=== PATIENT | male | born 1945 | race Caucasian/White ===

== ENCOUNTER 2022-06-21 11:18 | Inpatient (IN) | payer OTHER, MEDICAID ==
[~2022-06-21] VITALS: Ht 177.8 cm; Wt 82.1 kg
[2022-06-21 11:24] VITALS: BP 179/77
[2022-06-21] MEDS ORDERED: ALBUTEROL 0.083% 2.5 MG/3 ML NEBU INH ONE (12:50)
[2022-06-21] MEDS ORDERED: NACL 0.9% 1,000 ML IV ONE (12:50)
[2022-06-21] MEDS ORDERED: IPRATROPIUM 0.02% 0.5 MG/2.5 ML NEBU INH ONE (12:50)
[2022-06-21 14:00] LABS: BASOPHILS % (AUTO) 0.1 % (0.0-2.0); EOSINOPHILS % (AUTO) 0.1 % (0.0-4.0); HEMATOCRIT 35.3 % (36-52); HEMOGLOBIN 11.8 g/dL (12.0-18.0); LYMPHOCYTES # (AUTO) 1.6 K/uL (2.0-11.5); LYMPHOCYTES % (AUTO) 11.7 % (20.5-51.1); MEAN CORPUSCULAR HEMOGLOBIN 30 pg (27-31); MEAN CORPUSCULAR HGB CONC 33 g/dL (33-37); MEAN CORPUSCULAR VOLUME 88.5 fL (80-94); MONOCYTES # (AUTO) 0.7 K/uL (0.8-1.0); MONOCYTES % (AUTO) 4.8 % (1.7-9.3); NEUTROPHILS # (AUTO) 11.4 K/uL (1.8-7.7); NEUTROPHILS % (AUTO) 83.3 % (42.2-75.2); PLATELET COUNT (AUTO) 266 K/uL (140-450); RED BLOOD CELL COUNT(AUTO) 3.99 MIL/uL (4.20-6.10); RED CELL DISTRIBUTION WIDTH 15.8 % (11.6-13.7); WHITE BLOOD COUNT (AUTO) 13.7 K/uL (4.8-10.8)
[2022-06-21] MEDS ORDERED: cefTRIAXone 1,000 MG VIAL ONE (14:11)
[2022-06-21 14:35] LABS: ALBUMIN 2.5 g/dL (3.4-5.0); ASPARTATE AMINOTRANSFERASE 12 U/L (15-37); CARBON DIOXIDE 31.6 mmol/L (21-32); CHLORIDE 90 mmol/L (98-107); CREATININE 1.6 mg/dL (0.6-1.3); GLUCOSE 370 mg/dL (74-106); POTASSIUM 3.6 mmol/L (3.5-5.1); SODIUM SERUM 131 mmol/L (136-145); TOTAL BILIRUBIN 0.5 mg/dL (0.0-1.0); UREA NITROGEN, BLOOD 37 mg/dL (7-18)
[2022-06-21 14:41] LABS: RSV Negative (NEGATIVE)
--- NOTE | 2022-06-21 15:09 | NUR ---
PT C/O SOB, SPO2 87% ON 5L N/C. DR SORIANO AWARE. RT CALLED TO BEDSIDE. PT PLACED ON 9L N/C BUBBLER. PT REPORTS FEELING BETTER
--- NOTE | 2022-06-21 15:11 | NUR ---
PT PLACED ON 9L NC BUBBLER SATING 92%. RN REPORTED PT DESATING TO 87 ON NC 5L. PT IS TOLERATING 9L NC BUBBLER. NO DISTRESS NOTED. DR MANRIQUEZ WILL KEEPING SATS >90%
[2022-06-21] MEDS ORDERED: MAG SULF 2000 MG/WATER PREMIX 50 ML IV PRN (15:35)
[2022-06-21] MEDS ORDERED: MORPHINE SULFATE 2 MG/ML SYR IVP PRN (15:35)
[2022-06-21] MEDS ORDERED: ACETAMINOPHEN 325 MG TAB PO PRN (15:35)
[2022-06-21] MEDS ORDERED: DOCUSATE SODIUM 100 MG GELCAP PO PRN (15:35)
[2022-06-21] MEDS ORDERED: ONDANSETRON 4 MG/2 ML VIAL IVP PRN (15:35)
[2022-06-21] MEDS ORDERED: POTASSIUM CHLORIDE 10 MEQ TABER PO PRN (15:35)
[2022-06-21] MEDS ORDERED: DEXTROSE 50% 50 ML SYR IVP PRN (15:40)
[2022-06-21] MEDS ORDERED: DIABETES MEDS (15:49)
[2022-06-21] MEDS ORDERED: HTN MEDS (15:49)
[2022-06-21] MEDS: BLOOD GLUCOSE MONITORING 1 DEV DEV FS SCH ×2 (17:11→21:34)
[2022-06-21] MEDS: INSULIN LISPRO SLIDING SCALE 100 UNITS/ML VIAL SUBQ PRN ×2 (17:22→21:33)
--- NOTE | 2022-06-21 18:16 | NUR ---
PT SAYS FRIEND WHO LIVES WITH HIM WILL BRING HIS HOME MEDS, CAN'T REMEMBER MEDICATION NAMES
--- NOTE | 2022-06-21 18:16 | NUR ---
ATE 50 % OF MEAL TRAY SERVED, WITH ALL FLUIDS
--- NOTE | 2022-06-21 18:17 | NUR ---
NO URGE TO URINATE AT THIS TIME. PT DROVE TO ED WITH FRIEND, VOIDED URINE COMPUTATIONAL BIOLOGIST
[2022-06-21] MEDS ORDERED: METO25TA PO (18:22)
--- NOTE | 2022-06-21 19:45 | NUR ---
Patient resting in bed, A/Ox4, chest rise and fall symmetrical, no c/o pain or s/s of distress. Addendum: 06/21/22 at 2319 by [id number] Patient resting in bed, A/Ox3, chest rise and fall symmetrical, no c/o pain or s/s of distress.
[2022-06-21] MEDS ORDERED: PIPERACILLIN/TAZOBACTAM 3.375 GM in DEXTROSE 5% 50 ML IV SCH (21:00)
--- NOTE | 2022-06-21 21:00 | NUR ---
Patient resting in bed, A/Ox4, chest rise and fall symmetrical, no c/o pain or s/s of distress. Addendum: 06/21/22 at 2319 by [email or web address] Patient resting in bed, A/Ox3, chest rise and fall symmetrical, no c/o pain or s/s of distress.
[2022-06-21] MEDS ORDERED: PIPERACILLIN/TAZOBACTAM 3.375 GM VIAL IV ONE (21:21)
[2022-06-21] MEDS: PIPERACILLIN/TAZOBACTAM 3.375 GM in DEXTROSE 5% 50 ML IV SCH (21:35)
--- NOTE | 2022-06-21 22:00 | NUR ---
Patient resting in bed, A/Ox3, chest rise and fall symmetrical, no c/o pain or s/s of distress.
[2022-06-21 22:09] LABS: PROTHROMBIN TIME 10.9 secs (10.8-13.4)
--- NOTE | 2022-06-21 23:01 | NUR ---
Patient resting in bed, A/Ox3, chest rise and fall symmetrical, no c/o pain or s/s of distress.
--- NOTE | 2022-06-21 23:19 | NUR ---
Patient will be admitted to care of Pooja GRAJEDA. Admited to telemetry. Will go to room 115. Belongings list completed. Report to Pooja GRAJEDA. Pooja GRAJEDA verbalized understanding of report, no further questions.
--- NOTE | 2022-06-21 23:30 | NUR ---
PT WAS ADMITTED TO [facility] DEPARTMENT FROM ER THRU [facility] WITH DX OF COVID. PT IS AOX3, BEDREST, ABLE TO VERBALIZE NEEDS AND ABLE TO FOLLOW COMMANDS. PT IS ON 6L NC AND ON CARDIAC DIET. PT HAS IV ON RIGHT AC GAUGE 20 SALINE LOCK. PT SKIN IS INTACT. NO COMPLAIN OF PAIN AT THIS TIME. NO S/S OF RESPIRATORY DISTRESS NOTED. ALL SAFETY MEASURES IMPLEMENTED. BED IN LOW POSITION, BED WHEELS ON LOCK AND CALL LIGHT WITHIN REACH.
--- NOTE | 2022-06-22 02:00 | NUR ---
PT IS ON SLEEP. CHEST RISE AND FALL SYMMETRICALLY NOTED. RESPIRATION IS EVEN AND UNLABORED. ALL SAFETY MEASURES IMPLEMENTED. BED IN LOW POSITION, BED WHEELS ON LOCK AND CALL LIGHT WITHIN REACH.
[2022-06-22 04:00] VITALS: BP 138/65
[2022-06-22] MEDS ORDERED: PIPERACILLIN/TAZOBACTAM 3.375 GM VIAL IV ONE (04:02)
[2022-06-22] MEDS: PIPERACILLIN/TAZOBACTAM 3.375 GM in DEXTROSE 5% 50 ML IV SCH ×3 (04:33→21:00)
--- NOTE | 2022-06-22 04:33 | NUR ---
SCHEDULED AND PRESCRIBED MEDICATION WAS GIVEN TO PT PER MD ORDER. NO COMPLAIN OF PAIN AT THIS TIME AND NO S/S OF RESPIRATORY DISTRESS NOTED. ALL SAFETY MEASURES IMPLEMENTED. BED IN LOW POSITION, BED WHEELS ON LOCKED AND CALL LIGHT WITHIN REACH.
[2022-06-22] MEDS: BLOOD GLUCOSE MONITORING 1 DEV DEV FS SCH ×4 (06:39→21:22)
[2022-06-22] MEDS: INSULIN LISPRO SLIDING SCALE 100 UNITS/ML VIAL SUBQ PRN ×3 (06:40→21:23)
--- NOTE | 2022-06-22 06:40 | NUR ---
PT BLOOD GLUCOSE IS 171. HUMALOG INSULIN 2 UNITS WAS GIVEN TO PT PER MD ORDER.
[2022-06-22 07:23] LABS: BASOPHILS % (AUTO) 0.2 % (0.0-2.0); EOSINOPHILS # (AUTO) 0.1 K/uL (0-0.4); EOSINOPHILS % (AUTO) 0.9 % (0.0-4.0); HEMATOCRIT 29.7 % (36-52); LYMPHOCYTES % (AUTO) 11.3 % (20.5-51.1); MEAN CORPUSCULAR HEMOGLOBIN 30 pg (27-31); MEAN CORPUSCULAR HGB CONC 34 g/dL (33-37); MEAN CORPUSCULAR VOLUME 88.2 fL (80-94); MONOCYTES # (AUTO) 0.4 K/uL (0.8-1.0); MONOCYTES % (AUTO) 4.7 % (1.7-9.3); NEUTROPHILS # (AUTO) 7.1 K/uL (1.8-7.7); NEUTROPHILS % (AUTO) 82.9 % (42.2-75.2); PLATELET COUNT (AUTO) 236 K/uL (140-450); RED BLOOD CELL COUNT(AUTO) 3.37 MIL/uL (4.20-6.10); RED CELL DISTRIBUTION WIDTH 15.7 % (11.6-13.7); WHITE BLOOD COUNT (AUTO) 8.5 K/uL (4.8-10.8)
[2022-06-22 07:44] LABS: ANION GAP 8.2 (8-16); CHLORIDE 94 mmol/L (98-107); CREATININE 1.6 mg/dL (0.6-1.3); GLUCOSE 193 mg/dL (74-106); POTASSIUM 3.2 mmol/L (3.5-5.1); SODIUM SERUM 133 mmol/L (136-145); UREA NITROGEN, BLOOD 34 mg/dL (7-18)
[2022-06-22 08:00] VITALS: BP 156/77
[2022-06-22] MEDS: ASPIRIN 81 MG TAB.CHEW PO SCH (09:00)
[2022-06-22] MEDS: DEXAMETHASONE 10 MG/ML VIAL IVP SCH (09:00)
[2022-06-22] MEDS: METOPROLOL SUCCINATE 50 MG TABER PO SCH (09:00)
--- NOTE | 2022-06-22 09:23 | NUR ---
PATIENT HAS BEEN SCREENED AND CATEGORIZED MODERATE NUTRITION RISK. PATIENT WILL BE SEEN WITHIN 3-5 DAYS OF ADMISSION. REVIEWED BY VENITA WHIPPLE RD
--- NOTE | 2022-06-22 12:07 | NUR ---
RECEIVED ON SUPPLEMENTAL OXYGEN AT 5 LPM VIA NC HHN PRN THERAPY GIVEN AT THIS TME ENCOURAGED PATIENT FOR INTERMITTENT DEEP BREATH AND COUGH STRONG LOOSE NPC POST HHN THERAPY TITRATED FIO2 TO 3 LPM
[2022-06-22] MEDS: ALBUTEROL 0.083% 2.5 MG/3 ML NEBU INH PRN ×2 (13:38→19:22)
[2022-06-22 16:00] VITALS: BP 129/86
--- NOTE | 2022-06-22 16:45 | NUR ---
SATURATION 96% ON SUPPLEMENTAL OXYGEN AT 3 LPM VIA NC TITRATED FIO2 TO 2LPM SANG/RN NOTIFIED
--- NOTE | 2022-06-22 19:30 | NUR ---
RECEIVED PT FROM MORNING SHIFT NURSE. PT IS AOX3-4, ON BED REST, ABLE TO VERBALIZE NEEDS AND ABLE TO FOLLOW COMMANDS. PT IS ON 6L NC AND ON CARDIAC DIET. PT HAS NO IV. PT SKIN IS INTACT. NO COMPLAIN OF PAIN AT THIS TIME, NO S/S OF RESPIRATORY DISTRESS NOTED. ALL SAFETY MEASURES IMPLEMENTED. BED IN LOW POSITION, BED WHEELS ON LOCK AND CALL LIGHT WITHIN REACH.
[2022-06-22 20:00] VITALS: BP 135/60
--- NOTE | 2022-06-22 20:15 | NUR ---
INSERTED NEW IV TO PT AT RIGHT FOREARM GAUGE 22. IV IS NOW PATENT AND INTACT. ALL SAFETY MEASURES IMPLEMENTED. BED IN LOW POSITION, BED WHEELS ON LOCK AND CALL LIGHT WITHIN REACH.
[2022-06-22] MEDS: FUROSEMIDE 20 MG/2 ML VIAL IVP SCH (21:02)
--- NOTE | 2022-06-22 21:03 | NUR ---
ALL SCHEDULED AND PRESCRIBED MEDICATION WAS GIVEN TO PT PER MD ORDER. ALL SAFETY MEASURES IMPLEMENTED. BED IN LOW POSITION, BED WHEELS ON LOCK AND CALL LIGHT WITHIN REACH.
--- NOTE | 2022-06-22 21:23 | NUR ---
PT BLOOD GLUCOSE IS 393. HUMALOG INSULIN 10 UNITS WAS GIVEN TO PT PER MD ORDER. ALL SAFETY MEASURES IMPLEMENTED. BED IN LOW POSITION, BED WHEELS ON LOCK AND CALL LIGHT WITHIN REACH.
[2022-06-22 23:38] LABS: APPEARANCE,URINE CLEAR (CLEAR); BILIRUBIN,URINE NEGATIVE (NEGATIVE); BLOOD, URINE NEGATIVE (NEGATIVE); COLOR,URINE YELLOW (YELLOW); LEUKOCYTE ESTERASE ,URINE NEGATIVE (NEGATIVE); NITRITE, URINE NEGATIVE (NEGATIVE); PH,URINE 5.5 (5.0-9.0); UGLUCOSE 3+ (NEGATIVE)
[2022-06-23] VITALS: BP 123/66
[2022-06-23] MEDS: ZOLPIDEM 10 MG TAB PO PRN (00:19)
--- NOTE | 2022-06-23 00:19 | NUR ---
PT WAS GIVEN AMBIEN PT REQUEST. ALL SAFETY MEASURES IMPLEMENTED. BED IN LOW POSITION, BED WHEELS ON LOCK AND CALL LIGHT WITHIN REACH.
--- NOTE | 2022-06-23 02:00 | NUR ---
PT IS SLEEPING. CHEST RISE AND FALL SYMMETRICALLY NOTED. RESPIRATION IS EVEN AND UNLABORED. ALL SAFETY MEASURES IMPLEMENTED. BED IN LOW POSITION, BED WHEELS ON LOCK AND CALL LIGHT WITHIN REACH.
[2022-06-23 04:00] VITALS: BP 120/70
--- NOTE | 2022-06-23 04:00 | NUR ---
MORNING CARE WAS DONE TO PT. CHANGED GOWN AND LINENS. ALL SAFETY MEASURES IMPLEMENTED. BED IN LOW POSITION, BED WHEELS ON LOCK AND CALL LIGHT WITHIN REACH.
[2022-06-23 06:20] LABS: BASOPHILS # (AUTO) 0.1 K/uL (0.00-0.22); BASOPHILS % (AUTO) 0.6 % (0.0-2.0); HEMATOCRIT 31.4 % (36-52); HEMOGLOBIN 10.5 g/dL (12.0-18.0); LYMPHOCYTES # (AUTO) 0.5 K/uL (2.0-11.5); LYMPHOCYTES % (AUTO) 5.9 % (20.5-51.1); MEAN CORPUSCULAR HEMOGLOBIN 30 pg (27-31); MEAN CORPUSCULAR HGB CONC 34 g/dL (33-37); MEAN CORPUSCULAR VOLUME 88.1 fL (80-94); MONOCYTES # (AUTO) 0.2 K/uL (0.8-1.0); MONOCYTES % (AUTO) 2.5 % (1.7-9.3); PLATELET COUNT (AUTO) 289 K/uL (140-450); RED BLOOD CELL COUNT(AUTO) 3.57 MIL/uL (4.20-6.10); RED CELL DISTRIBUTION WIDTH 15.6 % (11.6-13.7); WHITE BLOOD COUNT (AUTO) 8.7 K/uL (4.8-10.8)
[2022-06-23] MEDS: BLOOD GLUCOSE MONITORING 1 DEV DEV FS SCH ×4 (06:31→20:52)
[2022-06-23] MEDS: INSULIN LISPRO SLIDING SCALE 100 UNITS/ML VIAL SUBQ PRN ×4 (06:32→20:51)
--- NOTE | 2022-06-23 06:32 | NUR ---
PT BLOOD GLUCOSE IS 221. HUMALOG INSULIN 4 UNITS WAS GIVEN TO PT PER MD ORDER. ALL SAFETY MEASURES IMPLEMENTED. BED IN LOW POSITION, BED WHEELS ON LOCK AND CALL LIGHT WITHIN REACH. Addendum: 06/23/22 at 0644 by Pooja Bryant RN WRONG PT
--- NOTE | 2022-06-23 06:32 | NUR ---
PT BLOOD GLUCOSE IS 327. HUMALOG INSULIN 6 UNITS WAS GIVEN TO PT PER MD ORDER. ALL SAFETY MEASURES IMPLEMENTED. BED IN LOW POSITION, BED WHEELS ON LOCK AND CALL LIGHT WITHIN REACH. Addendum: 06/23/22 at 0657 by Pooja Bryant RN WRONG DATA
--- NOTE | 2022-06-23 06:32 | NUR ---
PT BLOOD GLUCOSE IS 327. HUMALOG INSULIN 8 UNITS WAS GIVEN TO PT PER MD ORDER. ALL SAFETY MEASURES IMPLEMENTED. BED IN LOW POSITION, BED WHEELS ON LOCK AND CALL LIGHT WITHIN REACH.
[2022-06-23 07:00] LABS: ANION GAP 11.2 (8-16); CHLORIDE 92 mmol/L (98-107); CREATININE 1.7 mg/dL (0.6-1.3); GLUCOSE 354 mg/dL (74-106); POTASSIUM 4.2 mmol/L (3.5-5.1); SODIUM SERUM 131 mmol/L (136-145); UREA NITROGEN, BLOOD 37 mg/dL (7-18)
--- NOTE | 2022-06-23 07:30 | NUR ---
PT IS STABLE. ENDORSED PT TO MORNING SHIFT NURSE FOR CONTINUITY OF CARE.
[2022-06-23 08:00] VITALS: BP 129/76
[2022-06-23] MEDS: FUROSEMIDE 20 MG/2 ML VIAL IVP SCH ×2 (09:00→20:31)
[2022-06-23] MEDS: ASPIRIN 81 MG TAB.CHEW PO SCH (09:00)
[2022-06-23] MEDS: DEXAMETHASONE 10 MG/ML VIAL IVP SCH (09:00)
[2022-06-23] MEDS: METOPROLOL SUCCINATE 50 MG TABER PO SCH (09:00)
[2022-06-23] MEDS: AZITHROMYCIN 500 MG in DEXTROSE 5% 250 ML IV SCH (10:00)
--- NOTE | 2022-06-23 11:59 | NUR ---
P.T. NOTES P.T. EVAL COMPLETED; REFER TO EVAL FOR DETAILS.
[2022-06-23 12:00] VITALS: BP 122/72
[2022-06-23 16:00] VITALS: BP 116/62
--- NOTE | 2022-06-23 19:30 | NUR ---
RECEIVED PATIENT FROM AM NURSE FOR CONTINUITY OF CARE. PT IS STABLE
[2022-06-23 20:00] VITALS: BP 143/71
[2022-06-23] MEDS: ALBUTEROL 0.083% 2.5 MG/3 ML NEBU INH PRN (20:41)
[2022-06-24] VITALS: BP 128/64
--- NOTE | 2022-06-24 01:00 | NUR ---
PATIENT ASLEEP, ALL SAFETY MEASURES IN PLACE, NO SOB NOTED
[2022-06-24 04:00] VITALS: BP 149/76
[2022-06-24] MEDS: INSULIN LISPRO SLIDING SCALE 100 UNITS/ML VIAL SUBQ PRN ×4 (06:34→20:41)
[2022-06-24] MEDS: BLOOD GLUCOSE MONITORING 1 DEV DEV FS SCH ×4 (06:35→20:37)
[2022-06-24 06:47] LABS: ANION GAP 6.9 (8-16); CARBON DIOXIDE 35.5 mmol/L (21-32); CHLORIDE 93 mmol/L (98-107); CREATININE 1.5 mg/dL (0.6-1.3); GLUCOSE 349 mg/dL (74-106); POTASSIUM 4.4 mmol/L (3.5-5.1); SODIUM SERUM 131 mmol/L (136-145); UREA NITROGEN, BLOOD 36 mg/dL (7-18)
[2022-06-24 06:53] LABS: BASOPHILS % (AUTO) 0.1 % (0.0-2.0); HEMOGLOBIN 10.9 g/dL (12.0-18.0); LYMPHOCYTES # (AUTO) 0.9 K/uL (2.0-11.5); LYMPHOCYTES % (AUTO) 7.8 % (20.5-51.1); MEAN CORPUSCULAR HEMOGLOBIN 29 pg (27-31); MEAN CORPUSCULAR HGB CONC 33 g/dL (33-37); MEAN CORPUSCULAR VOLUME 87.4 fL (80-94); MONOCYTES # (AUTO) 0.5 K/uL (0.8-1.0); MONOCYTES % (AUTO) 4.4 % (1.7-9.3); NEUTROPHILS # (AUTO) 9.9 K/uL (1.8-7.7); NEUTROPHILS % (AUTO) 87.7 % (42.2-75.2); PLATELET COUNT (AUTO) 334 K/uL (140-450); RED BLOOD CELL COUNT(AUTO) 3.78 MIL/uL (4.20-6.10); RED CELL DISTRIBUTION WIDTH 15.5 % (11.6-13.7); WHITE BLOOD COUNT (AUTO) 11.3 K/uL (4.8-10.8)
--- NOTE | 2022-06-24 07:30 | NUR ---
RECEIVED PATIENT FROM MITIGATION SUPERVISOR NURSE, PATIENT IN DROPLET PRECAUTION.PATIENT SLEEPING IN BED, CHEST RISING AND FALLING EVENLY.ALL SAFETY MEASURES IN PLACE.POC DISCUSSED.WILL CONTINUE TO MONITOR.
[2022-06-24 08:00] VITALS: BP 130/64
[2022-06-24] MEDS: ASPIRIN 81 MG TAB.CHEW PO SCH (08:55)
[2022-06-24] MEDS: METOPROLOL SUCCINATE 50 MG TABER PO SCH (08:55)
[2022-06-24] MEDS: FUROSEMIDE 20 MG/2 ML VIAL IVP SCH ×2 (08:56→20:50)
[2022-06-24] MEDS: DEXAMETHASONE 10 MG/ML VIAL IVP SCH (08:56)
[2022-06-24] MEDS: AZITHROMYCIN 500 MG in DEXTROSE 5% 250 ML IV SCH (10:12)
--- NOTE | 2022-06-24 11:28 | NUR ---
PATIENT COMPLAINED OF DIFFICULTY TAKING BARNETT FOOD.CHANGED THE TEXTURE OF DIET TO MECHANICAL SOFT DIET.
[2022-06-24 12:00] VITALS: BP 124/70
--- NOTE | 2022-06-24 15:55 | NUR ---
Received call from RN saying pt was having difficulty breathing. Found PT had been moved to a different room. The previous room was too hot making PT uncomfortable. Arrived to new room and patient Oxygen saturation was 94% and he was no longer SOB. Will continue to monitor PT.
[2022-06-24 16:00] VITALS: BP 136/74
--- NOTE | 2022-06-24 17:36 | NUR ---
FREQUENT ROUNDS DONE.PATIENT VERBALISED CONCERNS OF ANXIETY.FAMILY CALLED AND DEMANDING FOR PRN ANXIETY MEDS.MEDICATED WITH PRN ANTI ANXIETY MEDICATION .PER ORN ORDER.
[2022-06-24] MEDS: LORazepam 2 MG/ML VIAL IVP PRN (17:39)
--- NOTE | 2022-06-24 17:56 | NUR ---
CALLED BY RN BECAUSE PT ASKED FOR A PRN TXN. HE SOUNDED DIMINISHED, COMPLAINED OF BEING SOB. PT WAS VERY AGITATED. GAVE TXN, PATIENT RELAXED SATURATION INCREASED FROM 94% TO 98%. nO RESPIRATORY DISTRESS WAS NOTED AND CHEST RISE WAS SYMMETRICAL. WILL CONTINUE TO MONITOR PT.
[2022-06-24] MEDS: ALBUTEROL 0.083% 2.5 MG/3 ML NEBU INH PRN (18:06)
--- NOTE | 2022-06-24 19:39 | NUR ---
ENDORSED THE PATIENT TO MUSIC THERAPIST NURSE FOR CONTINUITY OF CARE.
--- NOTE | 2022-06-24 19:40 | NUR ---
RECEIVED REPORT FROM DAY SHIFT NURSE KJ FOR CONTINUITY OF CARE. PT AWAKE SITTING AT BEDSIDE CHAIR. AMBULATORY. RESPIRATIONS EVEN AND UNLABORED ON RA. DENIES PAIN. NO DISTRESS NOTED. POC DISCUSSED WITH PT AND RN GLADYS. CALL LIGHT WITHIN REACH. SAFETY PRECAUTIONS IN PLACE.
[2022-06-24 20:00] VITALS: BP 125/73
--- NOTE | 2022-06-24 20:46 | NUR ---
ADMINISTERED DUE MEDS. PT TOLERATED WELL.
--- NOTE | 2022-06-24 21:16 | NUR ---
Patient's Plan of Care was discussed and reviewed with RANJITH KHAN.
[2022-06-25] VITALS: BP 130/74
[2022-06-25 04:00] VITALS: BP 148/83
--- NOTE | 2022-06-25 04:01 | NUR ---
V/S TAKEN. STABLE , SATTING AT 94% ON 2L NC. NO SOB. NO COMPLAINTS OF PAIN. NO DISTRESS NOTED.
[2022-06-25] MEDS: BLOOD GLUCOSE MONITORING 1 DEV DEV FS SCH ×4 (06:31→20:59)
[2022-06-25] MEDS: INSULIN LISPRO SLIDING SCALE 100 UNITS/ML VIAL SUBQ PRN ×4 (06:32→21:01)
[2022-06-25 07:04] LABS: ANION GAP 7.7 (8-16); CARBON DIOXIDE 35.7 mmol/L (21-32); CHLORIDE 94 mmol/L (98-107); CREATININE 1.4 mg/dL (0.6-1.3); GLUCOSE 318 mg/dL (74-106); POTASSIUM 4.4 mmol/L (3.5-5.1); SODIUM SERUM 133 mmol/L (136-145); UREA NITROGEN, BLOOD 33 mg/dL (7-18)
[2022-06-25 07:08] LABS: BASOPHILS % (AUTO) 0.1 % (0.0-2.0); EOSINOPHILS % (AUTO) 0.1 % (0.0-4.0); HEMOGLOBIN 11.9 g/dL (12.0-18.0); LYMPHOCYTES # (AUTO) 1.1 K/uL (2.0-11.5); LYMPHOCYTES % (AUTO) 14.7 % (20.5-51.1); MEAN CORPUSCULAR HEMOGLOBIN 30 pg (27-31); MEAN CORPUSCULAR HGB CONC 34 g/dL (33-37); MEAN CORPUSCULAR VOLUME 87.9 fL (80-94); MONOCYTES # (AUTO) 0.6 K/uL (0.8-1.0); MONOCYTES % (AUTO) 7.5 % (1.7-9.3); NEUTROPHILS # (AUTO) 5.8 K/uL (1.8-7.7); NEUTROPHILS % (AUTO) 77.6 % (42.2-75.2); PLATELET COUNT (AUTO) 339 K/uL (140-450); RED BLOOD CELL COUNT(AUTO) 3.98 MIL/uL (4.20-6.10); RED CELL DISTRIBUTION WIDTH 15.3 % (11.6-13.7); WHITE BLOOD COUNT (AUTO) 7.4 K/uL (4.8-10.8)
--- NOTE | 2022-06-25 07:18 | NUR ---
GAVE BEDSIDE REPORT TO NICCI UNDERWOOD. PT IS STABLE.
--- NOTE | 2022-06-25 07:26 | NUR ---
RECEIVED PATIENT FROM COTTON WEIGHER NURSE.PATIENT SLEEPING IN BED.CHEST RISING AND FALLING EVENLY.ON 2 L NC.NO OTHER SIGN SOF DISTRESS NOTED.ALL SAFETY MEASURES IN PLACE.WILL CONTINUE TO MONITOR.
[2022-06-25 08:00] VITALS: BP 151/84
[2022-06-25] MEDS: METOPROLOL SUCCINATE 50 MG TABER PO SCH (09:10)
[2022-06-25] MEDS: ASPIRIN 81 MG TAB.CHEW PO SCH (09:10)
[2022-06-25] MEDS: FUROSEMIDE 20 MG/2 ML VIAL IVP SCH ×2 (09:11→21:02)
[2022-06-25] MEDS: DEXAMETHASONE 10 MG/ML VIAL IVP SCH (09:12)
[2022-06-25] MEDS: AZITHROMYCIN 500 MG in DEXTROSE 5% 250 ML IV SCH (10:05)
--- NOTE | 2022-06-25 10:30 | NUR ---
FREQUENT ROUNDS DONE, MORNING MEDICATIONS GIVEN, MORNING CARE GIVEN, RT AT BEDSIDE. GIVING PRN BREATHING TREATMENT. PATIENT ON 2L NC. NO OTHER SIGNS OF DISTRESS NOTED.
[2022-06-25 12:00] VITALS: BP 120/65
--- NOTE | 2022-06-25 14:49 | NUR ---
06/25/22 RD INITIAL ASSESSMENT COMPLETED PLEASE REFER TO NUTRITION ASSESSMENT UNDER CARE ACTIVITY FOR ESTIMATED NUTRITIONAL NEEDS. 1. RECOMMEND ADDING [id number] TO CURRENT CARDIAC MECHANICAL SOFT DIET 2. WILL PROVIDE NUTRITIONAL EDUCATION HANDOUTS ON DIABETES AND CHF 3. MONITOR BLOOD GLUCOSE LEVELS AND GI SYMPTOMS 4. RD TO FOLLOW-UP 3-5 DAYS, MODERATE RISK VENITA WHIPPLE RD
[2022-06-25] MEDS ORDERED: guaiFENesin 20 MG/ML UDC PO PRN (15:30)
--- NOTE | 2022-06-25 15:37 | NUR ---
PATIENT COMPLAINTS OF COUGH , MD NOTIFIED AND RECEIVED ORDER FOR PRN COUGH MEDICINE.
[2022-06-25 16:00] VITALS: BP 120/70
[2022-06-25] MEDS: ALBUTEROL 0.083% 2.5 MG/3 ML NEBU INH PRN ×2 (16:48→19:53)
--- NOTE | 2022-06-25 19:26 | NUR ---
ENDORSED THE PATIENT TO MEDICAL SECRETARY NURSE FOR THE CONTINUITY OF CARE.
--- NOTE | 2022-06-25 19:27 | NUR ---
RECEIVED REPORT FROM DAY SHIFT NURSE KJ FOR CONTINUITY OF WORK. PT AWAKE SITTING IN BED. RESPIRATIONS EVEN AND UNLABORED ON 2L NC. NO DISTRESS NOTED. DENIES PAIN. ON DELIVERY MANAGER. POC DISCUSSED WITH PT AND NICCI ALMARAZ. CALL LIGHT WITHIN REACH. SAFETY PRECAUTIONS IN PLACE.
[2022-06-25 20:00] VITALS: BP 129/71
--- NOTE | 2022-06-25 20:00 | NUR ---
Patient's Plan of Care was discussed and reviewed with RANJITH KHAN.
--- NOTE | 2022-06-25 21:09 | NUR ---
ADMINISTERED DUE MEDS. PT TOLERATED WELL.
--- NOTE | 2022-06-25 21:12 | NUR ---
ADMINISTERED 2100 LASIX TO PATIENT. PATIENT TOLERATED IVP WELL. INFORMED LIBRARY SALES CONSULTANT FLORSAN OF MEDICATION ADMINISTRATION.
[2022-06-25] MEDS: LORazepam 2 MG/ML VIAL IVP PRN (22:59)
--- NOTE | 2022-06-25 23:12 | NUR ---
ADMINISTERED ATIVAN TO PATIENT. PATIENT TOLERATED IVP WELL. INFORMED BOMBSIGHT SPECIALIST FLORSAN OF MEDICATION ADMINISTRATION.
[2022-06-26] VITALS: BP 102/59
[2022-06-26 04:00] VITALS: BP 114/64
[2022-06-26] MEDS: BLOOD GLUCOSE MONITORING 1 DEV DEV FS SCH ×4 (06:30→20:56)
[2022-06-26] MEDS: INSULIN LISPRO SLIDING SCALE 100 UNITS/ML VIAL SUBQ PRN ×4 (06:31→20:57)
--- NOTE | 2022-06-26 06:34 | NUR ---
SLIDING SCALE INSULIN ADMINISTERED FOR BS 287. PT WENT BACK TO SLEEP. NO DISTRESS NOTED. NO SOB. SATTING AT 95% ON 2L NC.
[2022-06-26 06:47] LABS: ANION GAP 7.2 (8-16); CHLORIDE 93 mmol/L (98-107); CREATININE 1.4 mg/dL (0.6-1.3); GLUCOSE 310 mg/dL (74-106); POTASSIUM 4.2 mmol/L (3.5-5.1); SODIUM SERUM 132 mmol/L (136-145); UREA NITROGEN, BLOOD 26 mg/dL (7-18)
[2022-06-26 06:49] LABS: BASOPHILS % (AUTO) 0.1 % (0.0-2.0); EOSINOPHILS % (AUTO) 0.3 % (0.0-4.0); HEMATOCRIT 33.8 % (36-52); HEMOGLOBIN 11.5 g/dL (12.0-18.0); LYMPHOCYTES # (AUTO) 1.3 K/uL (2.0-11.5); LYMPHOCYTES % (AUTO) 20.8 % (20.5-51.1); MEAN CORPUSCULAR HEMOGLOBIN 30 pg (27-31); MEAN CORPUSCULAR HGB CONC 34 g/dL (33-37); MEAN CORPUSCULAR VOLUME 86.8 fL (80-94); MONOCYTES # (AUTO) 0.5 K/uL (0.8-1.0); NEUTROPHILS # (AUTO) 4.6 K/uL (1.8-7.7); NEUTROPHILS % (AUTO) 70.8 % (42.2-75.2); PLATELET COUNT (AUTO) 317 K/uL (140-450); RED BLOOD CELL COUNT(AUTO) 3.89 MIL/uL (4.20-6.10); RED CELL DISTRIBUTION WIDTH 15.2 % (11.6-13.7); WHITE BLOOD COUNT (AUTO) 6.5 K/uL (4.8-10.8)
--- NOTE | 2022-06-26 07:21 | NUR ---
ENDORSED PT TO NICCI ARTIS FOR CONTINUITY OF CARE. ALL NEEDS MET THROUGHOUT SHIFT. PT IS STABLE.
[2022-06-26 08:00] VITALS: BP 119/61
[2022-06-26] MEDS: ASPIRIN 81 MG TAB.CHEW PO SCH (11:07)
[2022-06-26] MEDS: METOPROLOL SUCCINATE 50 MG TABER PO SCH (11:08)
[2022-06-26] MEDS: FUROSEMIDE 20 MG/2 ML VIAL IVP SCH ×2 (11:08→22:00)
[2022-06-26] MEDS: DEXAMETHASONE 10 MG/ML VIAL IVP SCH (11:09)
[2022-06-26] MEDS: AZITHROMYCIN 500 MG in DEXTROSE 5% 250 ML IV SCH (11:15)
[2022-06-26 12:00] VITALS: BP 134/80
[2022-06-26 16:00] VITALS: BP 113/68
--- NOTE | 2022-06-26 19:16 | NUR ---
RECEIVED REPORT FROM DAY SHIFT NURSE STEFF FOR CONTINUITY OF CARE. PT AWAKE, SITTING IN BED. AMBULATORY. ON TRANSFORMATION CONSULTANT. SATTING AT 95% ON 2L NC. BREATHING EVEN AND UNLABORED. NO SOB. INITIAL ASSESSMENT DONE. POC DISCUSSED WITH PT AND NICCI ROSALES. CALL LIGHT WITHIN REACH. SAFETY PRECAUTIONS IN PLACE.
[2022-06-26 20:00] VITALS: BP 109/65
--- NOTE | 2022-06-26 21:03 | NUR ---
ADMINISTERED DUE MEDS. PT TOLERATED WELL.
[2022-06-26] MEDS: ALBUTEROL 0.083% 2.5 MG/3 ML NEBU INH PRN (21:26)
--- NOTE | 2022-06-26 23:40 | NUR ---
PT WAS COMPLAINING OF ANXIETY. V/S TAKEN AND WITHIN NORMAL LIMITS. NICCI ROSALES WAS INFORMED AND ADMINISTERED PRN MED FOR ANXIETY PER MD ORDER.
[2022-06-26] MEDS: LORazepam 2 MG/ML VIAL IVP PRN (23:43)
[2022-06-27] VITALS: BP 121/70
[2022-06-27 04:00] VITALS: BP 116/63
[2022-06-27] MEDS: INSULIN LISPRO SLIDING SCALE 100 UNITS/ML VIAL SUBQ PRN ×4 (06:35→20:40)
[2022-06-27] MEDS: BLOOD GLUCOSE MONITORING 1 DEV DEV FS SCH ×4 (06:35→20:23)
--- NOTE | 2022-06-27 06:40 | NUR ---
BLOOD SUGAR CHECK DONE. SLIDING SCALE INSULIN ADMINISTERED. PT NO COMPLAINTS OF PAIN, SOB. NO DISTRESS NOTED. PT BACK TO SLEEP. SAFETY PRECAUTIONS IN PLACE.
--- NOTE | 2022-06-27 07:11 | NUR ---
GAVE BEDSIDE REPORT TO NICCI ARTIS FOR CONTINUITY OF CARE. PT IS STABLE.
[2022-06-27 08:00] VITALS: BP 133/73
[2022-06-27] MEDS: AZITHROMYCIN 500 MG in DEXTROSE 5% 250 ML IV SCH (09:59)
[2022-06-27] MEDS: ASPIRIN 81 MG TAB.CHEW PO SCH (10:00)
[2022-06-27] MEDS: METOPROLOL SUCCINATE 50 MG TABER PO SCH (10:00)
[2022-06-27] MEDS: DEXAMETHASONE 10 MG/ML VIAL IVP SCH (10:01)
[2022-06-27] MEDS: FUROSEMIDE 20 MG/2 ML VIAL IVP SCH ×2 (10:01→21:49)
[2022-06-27] MEDS ORDERED: ASPI81CT95 PO (10:19)
[2022-06-27] MEDS ORDERED: APIX2.5 PO (10:19)
[2022-06-27] MEDS ORDERED: POTA8TAB19 PO (10:19)
[2022-06-27] MEDS ORDERED: AZIT250T4 PO (10:19)
[2022-06-27] MEDS ORDERED: FURO-570 PO (10:19)
[2022-06-27] MEDS ORDERED: DEC4 PO (10:19)
[2022-06-27 12:00] VITALS: BP 122/72
--- NOTE | 2022-06-27 14:47 | NUR ---
Oxygen trial on patient at room air with no oxygen stats at 88. When patient stands up and ambulates, oxygen level drops to 84-86% when 2 liters of oxygen is added, patient is able to maintain oxygen saturation at 95-97%
--- NOTE | 2022-06-27 15:43 | NUR ---
SATURATION 96% ON SUPPLEMENTAL OXYGEN AT 2 LPM VIA NC POST HHN THERAPY REMOVED FOR SUPPLEMENTAL OXYGEN PLACED ON ROOM AIR TRIAL
[2022-06-27 16:00] VITALS: BP 121/59
--- NOTE | 2022-06-27 16:03 | NUR ---
SATURATION 93% ON ROOM AIR ; ELIEL/REGGIE NOTIFIED
[2022-06-27] MEDS: ALBUTEROL 0.083% 2.5 MG/3 ML NEBU INH PRN (18:29)
[2022-06-27 20:00] VITALS: BP 116/68
--- NOTE | 2022-06-27 20:00 | NUR ---
Patient's Plan of Care was discussed and reviewed with FIRE OFFICIAL: SUNG POE
--- NOTE | 2022-06-27 21:00 | NUR ---
SCHEDULED MEDICATIONS ADMINISTERED. LAST BLOOD GLUCOSE = 354, 10 UNITS OF HUMALOG WAS GIVEN, NO SIGNS OF DISTRESS AT THIS TIME.
[2022-06-28] VITALS: BP 140/85
[2022-06-28] MEDS: ZOLPIDEM 10 MG TAB PO PRN (00:14)
--- NOTE | 2022-06-28 03:33 | NUR ---
PT ASLEEP AND STABLE IN BED. CURRENTLY ON ROOM AIR SATING AT 96%, WILL CONTINUE TO MONITOR.
[2022-06-28 04:00] VITALS: BP 131/66
--- NOTE | 2022-06-28 06:26 | NUR ---
PT RECEIVED HOME OXYGEN. EDUCATED PT ON HOW TO USE. PT VERBALIZED UNDERSTANDING. PT IS STABLE AT THIS TIME, WILL ENDORSE TO DAY SHIFT NURSE.
[2022-06-28] MEDS: BLOOD GLUCOSE MONITORING 1 DEV DEV FS SCH ×2 (06:49→12:02)
[2022-06-28] MEDS: INSULIN LISPRO SLIDING SCALE 100 UNITS/ML VIAL SUBQ PRN ×2 (06:50→12:03)
--- NOTE | 2022-06-28 07:20 | NUR ---
06/28/22 0800: REVIEWD PLAN AND WILL CONTINUE TO MONITOR. [id number]
[2022-06-28 07:28] VITALS: BP 131/66
[2022-06-28 08:00] VITALS: BP 140/78
[2022-06-28] MEDS: DEXAMETHASONE 10 MG/ML VIAL IVP SCH (09:29)
[2022-06-28] MEDS: ASPIRIN 81 MG TAB.CHEW PO SCH (09:30)
[2022-06-28] MEDS: METOPROLOL SUCCINATE 50 MG TABER PO SCH (09:31)
[2022-06-28] MEDS: FUROSEMIDE 20 MG/2 ML VIAL IVP SCH (09:31)
[2022-06-28 12:00] VITALS: BP 130/77
== END 2022-06-28 13:00 | disposition home or self-care (01) | DRG 871 ==
LOC: MED 11:18 → MTU 15:34
PROVIDERS: ADMIT Family Medicine; ATTEND Family Medicine
DX: A41.9 Sepsis, unspecified organism (principal); E43 Unspecified severe protein-calorie malnutrition; J12.82 Pneumonia due to coronavirus disease 2019; I50.33 Acute on chronic diastolic (congestive) heart failure; U07.1 COVID-19; N17.0 Acute kidney failure with tubular necrosis; J96.01 Acute respiratory failure with hypoxia; I13.0 Hypertensive heart and chronic kidney disease with heart failure and stage 1 through stage 4 chronic kidney disease, or unspecified chronic kidney disease; E87.1 Hypo-osmolality and hyponatremia; J81.1 Chronic pulmonary edema; E11.22 Type 2 diabetes mellitus with diabetic chronic kidney disease; Z68.26 Body mass index [BMI] 26.0-26.9, adult; I25.10 Atherosclerotic heart disease of native coronary artery without angina pectoris; D63.1 Anemia in chronic kidney disease; E87.8 Other disorders of electrolyte and fluid balance, not elsewhere classified; N18.9 Chronic kidney disease, unspecified; Z95.1 Presence of aortocoronary bypass graft
CPT/HCPCS: 36415; 71045; 80048; 80053; 81003; 82948; 83605; 83735; 83880; 84484; 85025; 85610; 85730; 87040; 87081; 87086; 87420; 93005; 94640; 96365; 97110; 97112; 97116; 97163-GP; 97530; 99285; J0456; J0696; J1100; J1644; J1815; J1940; J2060; J2543; J3475; J7060; J7613; J7644; Q0092